=== PATIENT | female | born 1960 | race Caucasian/White ===

== ENCOUNTER 2017-05-05 20:44 | Emergency (ER) | payer OTHER ==
[~2017-05-05] VITALS: Ht 165.1 cm; Wt 104.0 kg
[~2017-05-05 20:44] MED LIST: A/B OTIC OT; AUGMENTIN875TAB OR; KEFLEX500 MG PO; TOBRAMYCIN0.3 % OP
[2017-05-05 21:06] LABS: URINE BILIRUBIN - DIPSTICK NEGATIVE (NEGATIVE); URINE BLOOD DIPSTICK MODERATE (NEGATIVE); URINE COLOR YELLOW; URINE GLUCOSE - DIPSTICK NEGATIVE (NEGATIVE); URINE KETONE NEGATIVE (NEGATIVE); URINE NITRITE - DIPSTICK NEGATIVE (Negative); URINE PH 5.5 (4.5-8.0); URINE PROTEIN - DIPSTICK NEGATIVE (NEG-TRACE); URINE UROBILINOGEN - DIPSTICK 0.2 E.U./dL (0.2)
[2017-05-05 21:39] LABS: HEMATOCRIT 41.6 % (37.0-47.0); HEMOGLOBIN 13.9 g/dl (12.0-16.0); IMMATURE GRANULOCYTES 0.5 % (0.0-1.0); MEAN CELL VOLUME 90.4 fL CALC (80.0-100.0); MEAN CORPUSCULAR HGB 30.2 pG CALC (26.0-32.0); MEAN CORPUSCULAR HGB CONC 33.4 g/L CALC (32.0-36.0); NEUT# 9.8 thou/uL (2.00-7.15); RED BLOOD COUNT 4.6 mill/uL (4.20-5.60); RED CELL DISTRI WIDTH 13.3 % (11.5-15.5)
[2017-05-05 21:51] LABS: ALBUMIN 4.9 g/dL (3.2-5.0); BILIRUBIN, TOTAL 0.6 mg/dL (0.0-1.4); CALCIUM 10.2 mg/dL (8.4-10.2); CREATININE 1.5 mg/dL (0.5-1.0); POTASSIUM 4.2 mmol/l (3.5-5.1); TOTAL PROTEIN 7.7 g/dL (6.3-8.2)
[2017-05-05 21:55] LABS: URINE CLARITY TURBID; URINE LEUK ESTERASE SMALL (NEGATIVE)
[2017-05-05 22:00] LABS: URINE BACTERIA FEW hpf; URINE RBC 25-50 RBC/hpf (0-5); URINE SQUAMOUS EPITHELIAL CELL FEW EPI/hpf (0-FEW)
[2017-05-05] MEDS ORDERED: ZOFRAN ODT4 MG PO (22:31)
[2017-05-05] MEDS ORDERED: LORTAB 5/3255 MG PO (22:31)
[2017-05-05] MEDS ORDERED: TAMSULOSIN0.4 MG PO (22:31)
[2017-05-05] MEDS ORDERED: CIPROFLOXACN500 MG PO (22:33)
[2017-05-05 23:02] VITALS: BP 174/104
== END 2017-05-05 23:03 | disposition home or self-care (01) | DRG 694 ==
LOC: ED 20:44 → ED-I 21:00 → ED 23:03
DX: N20.0 Calculus of kidney (principal)